=== PATIENT | male | born 1970 | race African-American/Black ===

== ENCOUNTER 2017-09-28 08:06 | Emergency (ER) | payer OTHER ==
[2017-09-28] MEDS ORDERED: Lidocaine 1% w/Epinephrine 1:100K 20 ML VIAL ONE (08:34)
[2017-09-28] MEDS ORDERED: Bacitracin Zinc 1 Packet ONE (08:38)
== END 2017-09-28 09:57 | disposition home or self-care (01) ==
LOC: ERS 08:06
DX: S01.511A Laceration without foreign body of lip, initial encounter (principal); S00.31XA Abrasion of nose, initial encounter; S00.211A Abrasion of right eyelid and periocular area, initial encounter; E78.5 Hyperlipidemia, unspecified; I10 Essential (primary) hypertension; Z79.899 Other long term (current) drug therapy; Y04.2XXA Assault by strike against or bumped into by another person, initial encounter
CPT/HCPCS: 12011; J2001